=== PATIENT | male | born 1965 | race Caucasian/White ===

== ENCOUNTER 2017-02-07 08:44 | Day surgery (SDC) | payer OTHER ==
[~2017-02-07] VITALS: Ht 177.8 cm; Wt 113.4 kg
[~2017-02-07 08:44] MED LIST: AMLO5TAB PO; DICLOFENAC 50MG50 MG PO; ROBAXIN500 M1 PO; SYNTHROID 0.00.05 MG PO
--- NOTE | 2017-02-07 14:18 | Operative Note ---
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 The lesion was on the white lip just inferior to the vermilion. The lesion was marked out measured 1.4 cm. The markup was incised and the lesion was excised and submitted. Bleeding was less than 10 mL and stopped with bipolar cautery. Flaps were elevated and a tissue rearrangement geometric plastic repair was done with interrupted 4-0 Vicryl and 5-0 nylon sutures. A Dermabond dressing was applied and the patient was sent to recovery in good general condition. EBL (ml): 1 Specimens obtained: Same as above at 9343
[2017-02-07 14:40] VITALS: BP 153/89
== END 2017-02-07 12:00 | disposition home or self-care (01) ==
LOC: SDC 08:44
PROVIDERS: Otolaryngology
PROC: 0HB1XZZ Excision of Face Skin, External Approach (ICD-10-PCS; principal; 2017-02-07 10:00)
DX: C44.02 Squamous cell carcinoma of skin of lip (principal)